=== PATIENT | female | born 1970 | race African-American/Black ===

== ENCOUNTER 2021-11-25 23:58 | Emergency (ER) | payer MEDICAID ==
[~2021-11-25] VITALS: Ht 167.6 cm; Wt 98.0 kg
[~2021-11-25 23:58] MED LIST: ALBU90AE INH; AMLO10TA80 MT; ASPI-1406 PO; BECL10.62 INH; CARV25TA47 MT; CLON0.2T PO; GABA-529 MT; HYDR-4135 PO; INSU100I24 SQ; INSU100I32 SQ; PANT40TA51 MT; ROSU40TA MT; TRIA1TAB92 MT; VALS320T16 MT
[2021-11-26] MEDS ORDERED: ONDANSETRON HCL 4MG/2ML INJ IV ONE (00:30)
[2021-11-26] MEDS ORDERED: SODIUM CHLORIDE 0.9% 1,000 ML IV ONE (00:30)
[2021-11-26] MEDS ORDERED: DIPHENHYDRAMINE 50MG/ML VIAL IV ONE (01:00)
[2021-11-26] MEDS ORDERED: PROCHLORPERAZINE 10MG/2ML VIAL IV ONE (01:00)
[2021-11-26 01:10] LABS: BASOPHILS % 0.3 % (0.0-2.0); EOSINOPHILS % 2.3 % (0.0-5.0); HEMATOCRIT. 28.4 % (36.0-48.0); HEMOGLOBIN. 9.1 g/dL (12.0-16.0); LYMPHOCYTES % 18.4 % (20.0-50.0); MEAN CORPUSCULAR VOLUME 84.7 fL (81.0-99.0); MEAN PLATELET VOLUME 7.6 fl (7.4-10.4); MONOCYTES % 6.4 % (2.0-8.0); NEUTROPHILS % 72.6 % (40.0-76.0); PLATELET 281 x1000/uL (130-400); RED BLOOD CELL COUNT 3.35 mill/uL (4.2-5.4); RED CELL DISTRIBUTION WIDTH 18.5 % (11.6-14.6)
[2021-11-26 01:18] LABS: CHLORIDE 106 mEq/L (98-107)
[2021-11-26] MEDS ORDERED: KETOROLAC 30MG/ML VIAL IV ONE (01:45)
[2021-11-26] MEDS ORDERED: ONDA4TAB5 MT (02:20)
[2021-11-26 03:01] LABS: CLARITY URINE CLOUDY (CLEAR); COLOR URINE YELLOW (YELLOW); KETONES URINE NEGATIVE (NEGATIVE); LEUKOCYTE ESTERASE URINE 1+ (NEGATIVE); NITRITE URINE NEGATIVE (NEGATIVE); OCCULT BLOOD URINE NEGATIVE (NEGATIVE); PROTEIN URINE 3+ (NEGATIVE); SPECIFIC GRAVITY URINE 1.018 (1.005-1.030); UROBILINOGEN URINE 0.2 E.U./dL (0.2-1.0)
[2021-11-26] MEDS ORDERED: METOPROLOL SUCCINATE 50MG ER TABLET PO STA (03:51)
[2021-11-26] MEDS ORDERED: CEPH500T MT (03:57)
[2021-11-26] MEDS ORDERED: CEPHALEXIN 250MG CAPSULE PO ONE (04:00)
[2021-11-26 05:00] VITALS: BP 144/82
== END 2021-11-26 06:00 | disposition home or self-care (01) ==
LOC: ER 23:58
DX: A08.4 Viral intestinal infection, unspecified (principal); R51.9 Headache, unspecified; R11.2 Nausea with vomiting, unspecified; I10 Essential (primary) hypertension; E11.9 Type 2 diabetes mellitus without complications; E78.00 Pure hypercholesterolemia, unspecified; Z85.3 Personal history of malignant neoplasm of breast; Z79.82 Long term (current) use of aspirin; Z79.4 Long term (current) use of insulin
CPT/HCPCS: 36415; 76705; 80053; 81003; 81025; 83690; 85025; 87077; 87086; 87186; 96361; 96374; 96375; 99285; J0780; J1200; J1885; J7030

== ENCOUNTER 2022-06-29 20:13 | Emergency (ER) | payer MEDICAID, OTHER ==
[~2022-06-29] VITALS: Ht 167.6 cm; Wt 84.0 kg
[~2022-06-29 20:13] MED LIST changes: +CEPH500T MT; +ONDA4TAB5 MT
[2022-06-30 01:18] LABS: CHLORIDE 98 mEq/L (98-107)
[2022-06-30 01:23] LABS: BASOPHILS % 0.1 % (0.0-2.0); EOSINOPHILS % 0.2 % (0.0-5.0); HEMATOCRIT. 23.6 % (36.0-48.0); HEMOGLOBIN. 7.4 g/dL (12.0-16.0); LYMPHOCYTES % 14.3 % (20.0-50.0); MEAN CORPUSCULAR HEMOGLOBIN 27.7 pg (28.0-32.0); MEAN CORPUSCULAR VOLUME 87.7 fL (81.0-99.0); MEAN PLATELET VOLUME 8.7 fl (7.4-10.4); NEUTROPHILS % 77.4 % (40.0-76.0); PLATELET 293 x1000/uL (130-400); RED BLOOD CELL COUNT 2.69 mill/uL (4.2-5.4); RED CELL DISTRIBUTION WIDTH 18.2 % (11.6-14.6)
[2022-06-30 02:09] VITALS: BP 137/85
[2022-06-30 03:08] LABS: INR 1.1; PROTHROMBIN TIME 12.1 sec (9.6-11.0)
[2022-06-30 03:30] LABS: HCG SCREEN NEGATIVE
[2022-06-30] MEDS ORDERED: ONDANSETRON HCL 4MG/2ML INJ IV ONE (03:45)
[2022-06-30] MEDS ORDERED: SODIUM CHLORIDE 0.9% 1,000 ML IV ONE (03:45)
== END 2022-06-30 08:18 | disposition short-term general hospital (02) ==
LOC: ER 20:13 → CANBEDREQ 06-30 08:13 → ER 06-30 08:18
DX: N17.9 Acute kidney failure, unspecified (principal); R94.39 Abnormal result of other cardiovascular function study; D64.9 Anemia, unspecified; E11.9 Type 2 diabetes mellitus without complications; I10 Essential (primary) hypertension; E78.00 Pure hypercholesterolemia, unspecified; Z20.822 Contact with and (suspected) exposure to COVID-19; Z79.4 Long term (current) use of insulin; Z79.82 Long term (current) use of aspirin
CPT/HCPCS: 36415; 71045; 80053; 83605; 83690; 84484; 84703; 85025; 85610; 87426; 93005; 96361; 96374; 99285; C9803; J2405; J7030